=== PATIENT | male | born 1975 | race Caucasian/White ===

== ENCOUNTER 2017-11-07 18:38 | Emergency (ER) | payer BC ==
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
== END 2017-11-07 21:35 | disposition home or self-care (01) ==
LOC: JD.ED 18:38 → SUPCPDRO 18:38 → JD.ED 21:35
DX: S22.32XA Fracture of one rib, left side, initial encounter for closed fracture (principal); F17.210 Nicotine dependence, cigarettes, uncomplicated; Z88.0 Allergy status to penicillin; V86.92XA Unspecified occupant of snowmobile injured in nontraffic accident, initial encounter
CPT/HCPCS: 71250; 71250-26; 99284-25

== ENCOUNTER 2020-03-31 17:53 | Emergency (ER) | payer SELFPAY ==
[2020-03-31] MEDS ORDERED: Sodium Chloride 0.9% 10 ML Syringe FLUSH PRN (18:29)
--- NOTE | 2020-03-31 18:31 | EDM.PDOC ---
ED HPI GENERAL MEDICAL PROBLEM - General Chief Complaint: Drug or Alcohol Abuse Stated Complaint: LIVER PAIN Time Seen by Provider: 03/31/20 18:01 Source of Information: Reports: Patient, RN Notes Reviewed History Limitations: Reports: No Limitations - History of Present Illness INITIAL COMMENTS - FREE TEXT/NARRATIVE: Patient is a 44-year-old male who presents to the ED for the evaluation of his right upper quadrant pain. Patient notes he is a pretty heavy drinker, and he has been drinking pretty heavily on and off for the past 5 years. He states that he was up to 20 drinks of whiskey daily when he was at his heaviest use. He notes that his last period of sobriety was about 2 months the beginning of this year September 2019. Patient notes that he stopped drinking on Friday of this last week. He states Friday he felt pretty rotten, Friday got a little bit better, Friday he states his appetite returned and he was feeling almost 80% better, but over and today, he has been experiencing right upper quadrant pain, dizziness, and feels like his head is wobbling. He is not seeing anything that is not there. He has had alcoholic hepatitis 1 time in the past, and was concerned that this might be the case again today. Patient denies any other sick-like symptoms, fever/chills, cough/shortness of breath, nausea/vomiting/diarrhea. He states he is not been known to have any sort of alcohol withdrawal seizures. When I asked the patient what seemed to make him start drinking heavily, he states he did lose his son in 2014, and this is precipitated his alcohol use. He notes that he wants to get sober this time, as he has a fiance, and is interfering with the relationship, so he is quitting alcohol in an attempt to revive his relationship with his fiance. Right Upper Abdomen Pain Score (Numeric/FACES): 5 - Related Data Allergies Allergy/AdvReac Type Severity Reaction Status Date / Time Penicillins Allergy Vomiting Verified 03/31/20 18:05 Home Meds: Home Meds Cholecalciferol (Vitamin D3) [Vitamin D3] 1,000 units PO DAILY 03/31/20 [His tory] Multivitamin 1 tab PO DAILY 03/31/20 [History] Past Medical History HEENT History: Reports: Other (See Below) Other HEENT History: nasal surgery Musculoskeletal History: Reports: Other (See Below) Other Musculoskeletal History: meniscus removed right knee Psychiatric History: Reports: Addiction, Anxiety - Infectious Disease History Infectious Disease History: Reports: Hepatitis non A,B,C (alcoholic hepatitis) Social & Family History - Family History Family Medical History: Noncontributory - Tobacco Use Smoking Status *Q: Never Smoker Second Hand Smoke Exposure: No - Caffeine Use Caffeine Use: Reports: Coffee - Alcohol Use Alcohol Use History: Yes Days Per Week of Alcohol Use: 7 Number of Drinks Per Day: 20 (whiskey drinks) Total Drinks Per Week: 140 Date/Time of Last Drink Comment: States that his last drink was 03/26/2020 around 10AM Alcohol Use in Last Twelve Months: Yes Alcohol Use Frequency: Daily - Recreational Drug Use Recreational Drug Use: No - Living Situation & Occupation Occupation: Employed ED ROS GENERAL - Review of Systems Review Of Systems: Comprehensive ROS is negative, except as noted in HPI. ED EXAM, GENERAL - Physical Exam Exam: See Below Exam Limited By: No Limitations General Appearance: Alert, WD/WN, No Apparent Distress Eye Exam: Bilateral Eye: EOMI, Normal Inspection, PERRL Nose: Normal Inspection Throat/Mouth: Normal Inspection, Normal Lips, Normal Teeth, Normal Gums, Normal Oropharynx, Normal Voice, No Airway Compromise Head: Atraumatic, Normocephalic Neck: Normal Inspection Respiratory/Chest: No Respiratory Distress, Lungs Clear, Normal Breath Sounds, No Accessory Muscle Use, Chest Non-Tender Cardiovascular: Normal Peripheral Pulses, Regular Rate, Rhythm, No Murmur Peripheral Pulses: 3+: Radial (L), Radial (R) GI/Abdominal: Normal Bowel Sounds, Soft, No Distention, No Mass, Tender (slight tenderness to RUQ) Extremities: Normal Inspection, Normal Capillary Refill Neurological: Alert, Oriented, Normal Cognition, No Motor/Sensory Deficits Psychiatric: Normal Affect, Normal Mood Skin Exam: Warm, Dry, Intact, Normal Color, No Rash Course - Vital Signs Last Recorded V/S: Last Vital Signs Temp 98.5 F 03/31/20 18:02 Pulse 83 03/31/20 18:02 Resp 18 03/31/20 18:02 BP 157/99 H 03/31/20 18:02 Pulse Ox 99 03/31/20 18:02 - Orders/Labs/Meds Orders: Active Orders 24 hr Category Date Time Status Peripheral IV Care [RC] . DIRECTED Care 03/31/20 18:29 Active Sodium Chloride 0.9% [Saline Flush] Med 03/31/20 18:29 Active 10 ml FLUSH ASDIRECTED PRN Peripheral IV Insertion Adult [OM.PC] Stat Oth 03/31/20 18:29 Ordered Medication Orders Sodium Chloride (Saline Flush) 10 ml FLUSH ASDIRECTED PRN PRN Reason: Keep Vein Open Last Admin: 03/31/20 18:38 Dose: 10 ml Documented by: SUSAN Labs: Laboratory Tests 03/31/20 03/31/20 03/31/20 Range/Units 18:35 18:35 18:35 WBC 4.38 (4.23-9.07) K/mm3 RBC 4.00 L (4.63-6.08) M/mm3 Hgb 13.6 L (13.7-17.5) gm/dl Hct 40.9 (40.1-51.0) % MCV 102.3 H D (79.0-92.2) fl MCH 34.0 H (25.7-32.2) pg MCHC 33.3 (32.2-35.5) g/dl RDW Std Deviation 46.1 H (35.1-43.9) fL Plt Count 170 (163-337) K/mm3 MPV 10.1 (9.4-12.3) fl Neut % (Auto) 54.2 (34.0-67.9) % Lymph % (Auto) 25.6 (21.8-53.1) % Kerr % (Auto) 17.1 H (5.3-12.2) % Eos % (Auto) 1.8 (0.8-7.0) Baso % (Auto) 1.1 (0.1-1.2) % Neut # (Auto) 2.37 (1.78-5.38) K/mm3 Lymph # (Auto) 1.12 L (1.32-3.57) K/mm3 Kerr # (Auto) 0.75 (0.30-0.82) K/mm3 Eos # (Auto) 0.08 (0.04-0.54) K/mm3 Baso # (Auto) 0.05 (0.01-0.08) K/mm3 Manual Slide Review Abnormal smear PT 10.5 (9.7-12.0) SECONDS INR 0.96 APTT 27 (22-31) SECONDS Sodium 142 (136-145) mEq/L Potassium 3.6 (3.5-5.1) mEq/L Chloride 104 (98-107) mEq/L Carbon Dioxide 29 (21-32) mEq/L Anion Gap 12.6 (5-15) BUN 8 (7-18) mg/dL Creatinine 0.9 (0.7-1.3) mg/dL Est Cr Clr Drug Dosing 118.44 mL/min Estimated GFR (MDRD) > 60 (>60) mL/min BUN/Creatinine Ratio 8.9 L (14-18) Glucose 99 (74-106) mg/dL Calcium 8.7 (8.5-10.1) mg/dL Total Bilirubin 0.8 (0.2-1.0) mg/dL AST 51 H (15-37) U/L ALT 78 H (16-63) U/L Alkaline Phosphatase 82 (46-116) U/L Total Protein 7.0 (6.4-8.2) g/dl Albumin 3.5 (3.4-5.0) g/dl Globulin 3.5 gm/dL Albumin/Globulin Ratio 1.0 (1-2) Lipase 394 H (73-393) U/L Ethyl Alcohol 0.00 (0.00) gm% Meds: Medications Generic Name Dose Route Start Last Admin Trade Name Freq PRN Reason Stop Dose Admin Sodium Chloride 10 ml 03/31/20 18:29 03/31/20 18:38 Saline Flush FLUSH 10 ml ASDIRECTED PRN Administration Keep Vein Open - Re-Assessments/Exams Free Text/Narrative Re-Assessment/Exam: 03/31/20 18:37 Patient presents to the ED for evaluation of his right upper quadrant abdominal pain. Have ordered some basic labs, IV to be placed. Patient states he has been drinking lots of water, he very well could be hyponatremic causing some issues. Will await labs before we try to come up with a plan for this gentleman regarding his stopping drinking. 03/31/20 19:28 Patient CBC is returned, demonstrates no focal abnormalities. Metabolic panel shows a mildly elevated AST of 51, mildly elevated ALT of 78, lipase is 394, our cutoff for normal is 393, so essentially at the upper limits of normal but unremarkable, EtOH is is 0.00. Did order a PT/INR/PTT after initial labs, these are still pending at this time. 03/31/20 19:49 Coags are essentially normal, will discharge the patient home with general recommendations have him follow-up with his primary care provider as needed. Departure - Departure Time of Disposition: 19:49 Disposition: Home, Self-Care 01 Condition: Good Clinical Impression: RUQ abdominal pain Alcohol withdrawal without perceptual disturbances Qualifiers: Complication of substance-induced condition: uncomplicated Qualified Code(s): F10.230 - Alcohol dependence with withdrawal, uncomplicated - Discharge Information *PRESCRIPTION DRUG MONITORING PROGRAM REVIEWED*: No *COPY OF PRESCRIPTION DRUG MONITORING REPORT IN PATIENT KATIE: No Instructions: Alcohol Withdrawal Syndrome, [id number] Referrals: Theo Abbott Jr, MD [Primary Care Provider] - Additional Instructions: You were evaluated in the ER today regarding your upper abdominal pain. Laboratory evaluation was taken, and everything is unremarkable, you are not suffering from hepatitis. Liver enzymes are mildly elevated, but to be expected due to alcohol use. Your lipase was at the upper limits of normal, but again, this is not worrisome at this time. Keep up the good work, and try to refrain from alcohol use, you are pretty much over the worst portion of withdrawal type symptoms at this point. Recommend you try to increase your oral fluid intake as much as possible, try to drink fluids like Gatorade/Powerade as well. Try to get a few good meals daily, as this will also help possibly relieve some of the symptoms of the alcohol detox process. You may follow-up with your primary care provider as needed for further guidance. Not a bad idea to try to get involved with some sort of a AA group, or contact [facility] to see what they have to offer for guidance on alcohol addiction. Please return to the ER at any time if your symptoms should change or worsen. Sepsis Event Note (ED) - Evaluation Sepsis Screening Result: No Definite Risk - Focused Exam Vital Signs: Vital Signs Temp Pulse Resp BP Pulse Ox 03/31/20 18:02 98.5 F 83 18 157/99 H 99 - My Orders Last 24 Hours: My Active Orders 03/31/20 18:29 Peripheral IV Care [RC] . DIRECTED Sodium Chloride 0.9% [Saline Flush] 10 ml FLUSH ASDIRECTED PRN Peripheral IV Insertion Adult [OM.PC] Stat - Assessment/Plan Last 24 Hours: My Active Orders 03/31/20 18:29 Peripheral IV Care [RC] . DIRECTED Sodium Chloride 0.9% [Saline Flush] 10 ml FLUSH ASDIRECTED PRN Peripheral IV Insertion Adult [OM.PC] Stat
== END 2020-03-31 20:08 | disposition home or self-care (01) ==
LOC: JD.ED 17:53
DX: R10.11 Right upper quadrant pain (principal); F10.230 Alcohol dependence with withdrawal, uncomplicated; Z88.0 Allergy status to penicillin
CPT/HCPCS: 36415; 80053; 80307; 83690; 85025; 85610; 85730; 99283; 99284

== ENCOUNTER 2020-07-07 09:20 | Emergency (ER) | payer SELFPAY ==
[2020-07-07] MEDS ORDERED: Sodium Chloride 0.9% 10 ML Syringe FLUSH PRN (10:09)
[2020-07-07] MEDS ORDERED: LORazepam 2 MG/ML SDV IVPUSH ONE ×2 (10:09→11:48)
[2020-07-07] MEDS ORDERED: Sodium Chloride 0.9% 1,000 ML IV SCH ×2 (10:15→12:15)
[2020-07-07] MEDS ORDERED: Ondansetron 4 MG/2 ML SDV IVPUSH ONE (10:19)
[2020-07-07] MEDS ORDERED: Famotidine 20 MG/2 ML SDV IVPUSH ONE (10:19)
--- NOTE | 2020-07-07 10:24 | EDM.PDOCBH ---
ED HPI GENERAL MEDICAL PROBLEM - General Chief Complaint: Drug or Alcohol Abuse Stated Complaint: VOMITING Time Seen by Provider: 07/07/20 10:05 Source of Information: Reports: Patient, RN Notes Reviewed - History of Present Illness INITIAL COMMENTS - FREE TEXT/NARRATIVE: Has been drinking whiskey, binging the past 2 to 3 weeks. Has become ill with nause, vomiting, upper abd pain so did stop drinking about 3 days ago. Feels, weak, dizzy, lightheaded when standing and also has the "shakes" No hallucinations at this time. Had been off of alcohol for about 2 months prior to starting up again. Upper Abdomen Pain Score (Numeric/FACES): 10 - Related Data Allergies Allergy/AdvReac Type Severity Reaction Status Date / Time Penicillins AdvReac Severe Vomiting Verified 07/07/20 09:45 Home Meds: Home Meds Cholecalciferol (Vitamin D3) [Vitamin D3] 1,000 units PO DAILY 03/31/20 [History] Multivitamin 1 tab PO DAILY 03/31/20 [History] LORazepam [Ativan] 1 mg PO BID #7 tablet 07/07/20 [Rx] Ondansetron [Zofran ODT] 4 mg PO Q8HR PRN #6 tab.dis 07/07/20 [Rx] Past Medical History HEENT History: Reports: Other (See Below) Other HEENT History: nasal surgery Gastrointestinal History: Reports: Other (See Below) Other Gastrointestinal History: "Liver Issues" Musculoskeletal History: Reports: Other (See Below) Other Musculoskeletal History: meniscus removed right knee Psychiatric History: Reports: Addiction, Anxiety - Infectious Disease History Infectious Disease History: Reports: Other (See Below) Other Infectious Disease History: Possible Hepatitis? - Past Surgical History HEENT Surgical History: Reports: Naso-Sinus Surgery Social & Family History - Family History Family Medical History: Noncontributory - Tobacco Use Tobacco Use Status *Q: Never Tobacco User - Caffeine Use Caffeine Use: Reports: None - Recreational Drug Use Recreational Drug Use: No - Living Situation & Occupation Occupation: Employed ED ROS GENERAL - Review of Systems Review Of Systems: See Below Constitutional: Denies: Fever, Chills, Diaphoresis HEENT: Reports: No Symptoms Respiratory: Denies: Shortness of Breath, Cough Cardiovascular: Denies: Chest Pain GI/Abdominal: Reports: Nausea, Vomiting. Denies: Abdominal Pain, Diarrhea, Hematochezia, Melena Musculoskeletal: Reports: No Symptoms Skin: Reports: No Symptoms Neurological: Reports: Tremors, Other Psychiatric: Reports: Anxiety ED EXAM, BEHAVIORAL HEALTH - Physical Exam Exam: See Below General Appearance: Alert, Anxious, Mild Distress Eye Exam: Bilateral Eye: PERRL Head: Atraumatic Neck: Supple Respiratory/Chest: No Respiratory Distress, Lungs Clear, Normal Breath Sounds Cardiovascular: Tachycardia GI/Abdominal: Soft, Non-Tender Extremities: Normal Inspection, Normal Range of Motion Neurological: Tremor Skin Exam: Warm, Dry, Normal color COURSE, BEHAVIORAL HEALTH COMP - Course Vital Signs: Last Vital Signs Temp 97.1 F 07/07/20 09:42 Pulse 98 07/07/20 09:42 Resp 18 07/07/20 09:42 BP 164/101 H 07/07/20 09:42 Pulse Ox 97 07/07/20 09:42 Orders, Labs, Meds: Active Orders 24 hr Category Date Time Status Peripheral IV Care [RC] . DIRECTED Care 07/07/20 10:10 Active Sodium Chloride 0.9% [Normal Saline] 1,000 ml Med 07/07/20 10:15 Active IV ONETIME Sodium Chloride 0.9% [Normal Saline] 1,000 ml Med 07/07/20 12:15 Active IV ONETIME Sodium Chloride 0.9% [Saline Flush] Med 07/07/20 10:09 Active 10 ml FLUSH ASDIRECTED PRN Peripheral IV Insertion Adult [OM.PC] Stat Oth 07/07/20 10:09 Ordered Medication Orders Sodium Chloride (Normal Saline) 1,000 mls @ 999 mls/hr IV ONETIME MARILY Last Admin: 07/07/20 10:39 Dose: 999 mls/hr Documented by: SUSAN Sodium Chloride (Normal Saline) 1,000 mls @ 999 mls/hr IV ONETIME MARILY Sodium Chloride (Saline Flush) 10 ml FLUSH ASDIRECTED PRN PRN Reason: Keep Vein Open Last Admin: 07/07/20 10:41 Dose: 10 ml Documented by: SUSAN Laboratory Tests 07/07/20 07/07/20 Range/Units 09:53 09:53 WBC 8.39 (4.23-9.07) K/mm3 RBC 5.06 (4.63-6.08) M/mm3 Hgb 16.4 D (13.7-17.5) gm/dl Hct 47.8 (40.1-51.0) % MCV 94.5 H D (79.0-92.2) fl MCH 32.4 H (25.7-32.2) pg MCHC 34.3 (32.2-35.5) g/dl RDW Std Deviation 42.9 (35.1-43.9) fL Plt Count 243 (163-337) K/mm3 MPV 10.5 (9.4-12.3) fl Neut % (Auto) 79.2 H (34.0-67.9) % Lymph % (Auto) 10.8 L (21.8-53.1) % [place] % (Auto) 8.9 (5.3-12.2) % Eos % (Auto) 0.4 L (0.8-7.0) Baso % (Auto) 0.6 (0.1-1.2) % Neut # (Auto) 6.64 H (1.78-5.38) K/mm3 Lymph # (Auto) 0.91 L (1.32-3.57) K/mm3 [place] # (Auto) 0.75 (0.30-0.82) K/mm3 Eos # (Auto) 0.03 L (0.04-0.54) K/mm3 Baso # (Auto) 0.05 (0.01-0.08) K/mm3 Sodium 137 (136-145) mEq/L Potassium 4.0 (3.5-5.1) mEq/L Chloride 97 L (98-107) mEq/L Carbon Dioxide 28 (21-32) mEq/L Anion Gap 16.0 H (5-15) BUN 12 (7-18) mg/dL Creatinine 1.0 (0.7-1.3) mg/dL Est Cr Clr Drug Dosing 106.59 mL/min Estimated GFR (MDRD) > 60 (>60) mL/min BUN/Creatinine Ratio 12.0 L (14-18) Glucose 122 H (74-106) mg/dL Calcium 9.4 (8.5-10.1) mg/dL Total Bilirubin 1.8 H (0.2-1.0) mg/dL AST 70 H (15-37) U/L ALT 73 H (16-63) U/L Alkaline Phosphatase 100 (46-116) U/L Total Protein 8.1 (6.4-8.2) g/dl Albumin 4.3 (3.4-5.0) g/dl Globulin 3.8 gm/dL Albumin/Globulin Ratio 1.1 (1-2) Lipase 85 (73-393) U/L Ethyl Alcohol 0.00 (0.00) gm% Medications Generic Name Dose Route Start Last Admin Trade Name Freq PRN Reason Stop Dose Admin Sodium Chloride 1,000 mls @ 999 mls/hr 07/07/20 10:15 07/07/20 10:39 Normal Saline IV 999 mls/hr ONETIME MARILY Administration Sodium Chloride 1,000 mls @ 999 mls/hr 07/07/20 12:15 Normal Saline IV ONETIME MARILY Sodium Chloride 10 ml 07/07/20 10:09 07/07/20 10:41 Saline Flush FLUSH 10 ml ASDIRECTED PRN Administration Keep Vein Open Discontinued Medications Generic Name Dose Route Start Last Admin Trade Name Freq PRN Reason Stop Dose Admin Famotidine 20 mg 07/07/20 10:19 07/07/20 10:41 Pepcid IVPUSH 07/07/20 10:20 20 mg ONETIME ONE Administration Sodium Chloride 1,000 mls @ 999 mls/hr 07/07/20 11:59 07/07/20 12:06 Normal Saline IV 07/07/20 12:59 999 mls/hr ONETIME ONE Administration Lorazepam 1 mg 07/07/20 10:09 07/07/20 10:40 Ativan IVPUSH 07/07/20 10:10 1 mg ONETIME ONE Administration Lorazepam 1 mg 07/07/20 11:48 07/07/20 11:58 Ativan IVPUSH 07/07/20 11:49 1 mg ONETIME ONE Administration Ondansetron HCl 4 mg 07/07/20 10:19 07/07/20 10:39 Zofran IVPUSH 07/07/20 10:20 4 mg ONETIME ONE Administration Re-Assessment/Re-Exam: Feeling better at time of discharge, treated with IV fluid, IV zofran, ativan 1 mg times 2. Discharge instr. as documented. Departure - Departure Time of Disposition: 13:11 Disposition: Home, Self-Care 01 Condition: Fair Clinical Impression: Vomiting Alcohol withdrawal Qualifiers: Complication of substance-induced condition: uncomplicated Qualified Code(s): F10.230 - Alcohol dependence with withdrawal, uncomplicated - Discharge Information Prescriptions: LORazepam [Ativan] 1 mg PO BID #7 tablet Ondansetron [Zofran ODT] 4 mg PO Q8HR PRN #6 tab.dis PRN Reason: Nausea/Vomiting Instructions: Alcohol Withdrawal Syndrome, [id number] Referrals: PCP,None [Primary Care Provider] - Forms: ED Department Discharge Additional Instructions: Rest. Avoid further alcohol. Clear liquids and bland diet as tolerated. Zofran if needed for further nausea or vomiting. Ativan 1 mg twice daily for 3 days to help for withdrawal symptoms. Go to [facility] 8:30 AM any morning Friday to Friday for open enrollment. They have counselors and programs that can help you. Return to ED as needed. Sepsis Event Note (ED) - Evaluation Sepsis Screening Result: No Definite Risk - Focused Exam Vital Signs: Vital Signs Temp Pulse Resp BP Pulse Ox 07/07/20 09:42 97.1 F 98 18 164/101 H 97 - My Orders Last 24 Hours: My Active Orders 07/07/20 10:09 Sodium Chloride 0.9% [Saline Flush] 10 ml FLUSH ASDIRECTED PRN Peripheral IV Insertion Adult [OM.PC] Stat 07/07/20 10:10 Peripheral IV Care [RC] . DIRECTED 07/07/20 10:15 Sodium Chloride 0.9% [Normal Saline] 1,000 ml IV ONETIME 07/07/20 12:15 Sodium Chloride 0.9% [Normal Saline] 1,000 ml IV ONETIME - Assessment/Plan Last 24 Hours: My Active Orders 07/07/20 10:09 Sodium Chloride 0.9% [Saline Flush] 10 ml FLUSH ASDIRECTED PRN Peripheral IV Insertion Adult [OM.PC] Stat 07/07/20 10:10 Peripheral IV Care [RC] . DIRECTED 07/07/20 10:15 Sodium Chloride 0.9% [Normal Saline] 1,000 ml IV ONETIME 07/07/20 12:15 Sodium Chloride 0.9% [Normal Saline] 1,000 ml IV ONETIME
[2020-07-07] MEDS ORDERED: Sodium Chloride 0.9% 1,000 ML IV ONE (11:59)
== END 2020-07-07 13:53 | disposition home or self-care (01) ==
LOC: JD.ED 09:20
DX: F10.230 Alcohol dependence with withdrawal, uncomplicated (principal); R10.10 Upper abdominal pain, unspecified; F41.9 Anxiety disorder, unspecified; Z88.0 Allergy status to penicillin; Z79.899 Other long term (current) drug therapy
CPT/HCPCS: 36415; 80053; 80307; 83690; 85025; 96374; 96375; 96376; 99284; J2060; J2405; J3490; J7030

== ENCOUNTER 2022-07-05 12:33 | Emergency (ER) | payer SELFPAY ==
[2022-07-05] MEDS ORDERED: Sodium Chloride 0.9% 10 ML Syringe FLUSH PRN (13:39)
[2022-07-05] MEDS ORDERED: LORazepam 2 MG/ML SDV IVPUSH ONE ×2 (13:40→15:56)
[2022-07-05] MEDS ORDERED: Sodium Chloride 0.9% 1,000 ML IV ONE ×2 (13:40→15:27)
== END 2022-07-05 17:16 | disposition home or self-care (01) ==
LOC: JD.ED 12:33
DX: R56.9 Unspecified convulsions (principal); F10.939 Alcohol use, unspecified with withdrawal, unspecified; Z88.0 Allergy status to penicillin; Z79.899 Other long term (current) drug therapy; W01.10XA Fall on same level from slipping, tripping and stumbling with subsequent striking against unspecified object, initial encounter
CPT/HCPCS: 36415; 70450; 80053; 80143; 80179; 80306; 80307; 81001; 83605; 83735; 84443; 85025; 93005; 96361; 96374; 96376; 99285; J2060; J3490; J7030; 93010; 99284

== ENCOUNTER 2023-04-06 12:37 | Emergency (ER) | payer OTHER ==
[2023-04-06] MEDS ORDERED: Sodium Chloride 0.9% 10 ML Syringe FLUSH PRN (13:14)
[2023-04-06] MEDS ORDERED: Ondansetron 4 MG/2 ML SDV IVPUSH ONE (13:14)
[2023-04-06] MEDS ORDERED: LORazepam 2 MG/ML SDV IVPUSH ONE ×2 (13:15→15:38)
[2023-04-06] MEDS ORDERED: Sodium Chloride 0.9% 1,000 ML IV SCH (13:15)
[2023-04-06] MEDS ORDERED: HYDROmorphone 0.5 MG/0.5 ML Syringe IVPUSH ONE (13:41)
[2023-04-06 13:47] LABS: BASOPHILS ABSOLUTE AUTO 0.01 K/mm3 (0.01-0.08); BASOPHILS PERCENT AUTO 0.1 % (0.1-1.2); EOSINOPHILS PERCENT AUTO 0 (0.8-7.0); HEMATOCRIT 45.6 % (40.1-51.0); HEMOGLOBIN 15.8 gm/dl (13.7-17.5); IMMATURE GRAN ABSOLUTE AUTO 0.02 K/mm3 (0.00-0.10); IMMATURE GRAN PERCENT AUTO 0.2 % (<=1.0); LYMPHOCYTES ABSOLUTE AUTO 0.83 K/mm3 (1.32-3.57); LYMPHOCYTES PERCENT AUTO 7.4 % (21.8-53.1); MEAN CORPUSCULAR HEMOGLOBIN 32.4 pg (25.7-32.2); MEAN CORPUSCULAR HGB CONC 34.6 g/dl (32.2-35.5); MEAN CORPUSCULAR VOLUME 93.4 fl (79.0-92.2); MEAN PLATELET VOLUME 10.9 fl (9.4-12.3); MONOCYTES ABSOLUTE AUTO 0.98 K/mm3 (0.30-0.82); MONOCYTES PERCENT AUTO 8.8 % (5.3-12.2); NEUTROPHILS ABSOLUTE AUTO 9.36 K/mm3 (1.78-5.38); NEUTROPHILS PERCENT AUTO 83.5 % (34.0-67.9); PLATELET COUNT,PLT 92 K/mm3 (163-337); RED BLOOD CELL COUNT 4.88 M/mm3 (4.63-6.08)
[2023-04-06 14:29] LABS: ALBUMIN 4.1 g/dl (3.4-5.0); ANION GAP 14.6 (5-15); BILIRUBIN TOTAL 2.2 mg/dL (0.2-1.0); BUN/CREATININE RATIO 31.3 (14-18); CALCIUM 9.7 mg/dL (8.5-10.1); CREATININE 0.8 mg/dL (0.7-1.3); EST CRCL DRUG DOSING (CG) 133.5 mL/min; MAGNESIUM 1.4 mg/dL (1.8-2.4); POTASSIUM,K 2.6 mEq/L (3.5-5.1); PROTEIN TOTAL,TP 8.3 g/dl (6.4-8.2)
[2023-04-06 14:35] LABS: SLIDE REVIEW ABNORMAL SMEAR
[2023-04-06] MEDS ORDERED: Magnesium Sulfate/Water 2 GM in Premix Bag 1 BAG IV ONE (14:47)
[2023-04-06] MEDS ORDERED: Sodium Chloride 0.9% 1,000 ML IV ONE (14:48)
[2023-04-06] MEDS: Potassium Chloride 10 MEQ in Premix Bag 1 BAG IV SCH ×3 (15:37→18:13)
[2023-04-06] MEDS ORDERED: Metoclopramide 10 MG/2 ML SDV IVPUSH ONE (15:38)
[2023-04-06] MEDS ORDERED: cloNIDine 0.1 MG Tab PO ONE (16:07)
== END 2023-04-06 18:10 | disposition home or self-care (01) ==
LOC: JD.ED 12:37
DX: F10.930 Alcohol use, unspecified with withdrawal, uncomplicated (principal); R11.2 Nausea with vomiting, unspecified; E87.6 Hypokalemia; Z88.0 Allergy status to penicillin; Y90.0 Blood alcohol level of less than 20 mg/100 ml
CPT/HCPCS: 36415; 80053; 80143; 80179; 80307; 83735; 85025; 96361; 96365; 96366; 96368; 96375; 96376; 99284; A9270; J1170; J2060; J2405; J2765; J3475; J3480; J3490; J7030

== ENCOUNTER 2023-06-30 16:59 | Inpatient (IN) | payer OTHER ==
[2023-06-30] MEDS ORDERED: LORazepam 2 MG/ML SDV IVPUSH ONE ×3 (17:14→20:55)
[2023-06-30] MEDS ORDERED: Metoclopramide 10 MG/2 ML SDV IVPUSH ONE (17:15)
[2023-06-30] MEDS ORDERED: Sodium Chloride 0.9% 1,000 ML IV ONE (17:16)
[2023-06-30 17:30] LABS: BASOPHILS ABSOLUTE AUTO 0.1 K/mm3 (0.0-0.2); EOSINOPHILS ABSOLUTE AUTO 0.1 K/mm3 (0.0-0.4); HEMATOCRIT 51.1 % (42.0-52.0); HEMOGLOBIN 18.8 gm/dl (14.0-18.0); IMMATURE GRAN ABSOLUTE AUTO 0.01 K/mm3 (0.00-0.05); IMMATURE GRAN PERCENT AUTO 0.2 % (0.0-0.4); LYMPHOCYTES ABSOLUTE AUTO 1.5 K/mm3 (1.0-4.8); LYMPHOCYTES PERCENT AUTO 31.6 % (24.0-44.0); MEAN CORPUSCULAR HEMOGLOBIN 33.2 pg (28.0-32.0); MEAN CORPUSCULAR HGB CONC 36.8 g/dl (32.0-36.0); MEAN CORPUSCULAR VOLUME 90.1 fl (83.0-99.0); MONOCYTES ABSOLUTE AUTO 0.5 K/mm3 (0.0-0.8); MONOCYTES PERCENT AUTO 9.6 % (0.0-8.0); NEUTROPHILS ABSOLUTE AUTO 2.7 K/mm3 (1.8-7.7); NEUTROPHILS PERCENT AUTO 56.6 % (41.0-71.0); PLATELET COUNT,PLT 155 K/mm3 (150-400); RED BLOOD CELL COUNT 5.67 M/mm3 (4.52-5.90); WHITE BLOOD CELL COUNT,WBC 4.81 K/mm3 (3.9-11.3)
[2023-06-30 17:49] LABS: A/G RATIO 1.1 (1-2); ALBUMIN 4.4 g/dl (3.4-5.0); ANION GAP 20.4 (5-15); BILIRUBIN TOTAL 0.9 mg/dL (0.2-1.0); CALCIUM 8.9 mg/dL (8.5-10.1); EST CRCL DRUG DOSING (CG) 103.89 mL/min; MAGNESIUM 1.8 mg/dL (1.8-2.4); POTASSIUM,K 3.4 mEq/L (3.5-5.1); PROTEIN TOTAL,TP 8.6 g/dl (6.4-8.2)
[2023-06-30] MEDS ORDERED: NS with KCl 40mEq 1,000 ML IV SCH (18:45)
[2023-06-30] MEDS ORDERED: Pantoprazole 40 MG Vial IVPUSH ONE (18:46)
[2023-06-30 20:09] LABS: APPEARANCE,URINE CLEAR (Clear); BILIRUBIN,URINE NEGATIVE (Negative); COLOR,URINE YELLOW (Yellow); GLUCOSE,URINE NEGATIVE (Negative); KETONES,URINE 1+ (Negative); LEUKOCYTE ESTERASE,URINE NEGATIVE (Negative); NITRITE,URINE NEGATIVE (Negative); OCCULT BLOOD,URINE TRACE-LYSED (Negative); PH,URINE 6.5 (5.0-8.0); PROTEIN,URINE 2+ (Negative)
[2023-06-30 20:16] LABS: BARBITURATE SCREEN,URINE NEGATIVE (CUTOFF=200); BENZODIAZEPINES SCREEN,URINE PRESUMPTIVE POSITIVE (CUTOFF=150); BUPRENORPHINE SCREEN,URINE NEGATIVE (CUTOFF=10); METHADONE SCREEN, URINE NEGATIVE (CUT0FF=200); METHAMPHETAMINES SCREEN, URINE NEGATIVE (CUTOFF=500); OXYCODONE SCREEN,URINE NEGATIVE (CUT0FF=100); PROPOXYPHENE SCREEN,URINE NEGATIVE (CUTOFF=300); THC SCREEN,URINE 20 NG/ML NEGATIVE (CUTOFF=50)
[2023-06-30 20:18] LABS: BACTERIA,URINE FEW /hpf (FEW); MUCUS,URINE MANY /hpf (FEW); RBC,URINE 0-5 /hpf (0-5); SQUAMOUS EPITHELIAL CELLS,UR 0-5 /hpf (0-5); WBC,URINE 0-5 /hpf (0-5)
[2023-06-30 20:19] LABS: AMPHETAMINES SCREEN, URINE NEGATIVE (CUTOFF=500)
[2023-06-30] MEDS ORDERED: Promethazine 12.5 MG in Sodium Chloride 0.9% 50 ML IV ONE (20:47)
[2023-06-30] MEDS ORDERED: HYDROmorphone 0.5 MG/0.5 ML Syringe IVPUSH ONE (21:00)
[2023-06-30] MEDS ORDERED: Naloxone 0.4 MG/ML SDV IVPUSH PRN (21:00)
[2023-07-01] MEDS: LORazepam 2 MG/ML SDV IVPUSH PRN ×8 (00:04→23:40)
[2023-07-01] MEDS: Ondansetron 4 MG/2 ML SDV IVPUSH PRN ×3 (02:50→16:53)
[2023-07-01 06:34] LABS: HEMATOCRIT 39.9 % (42.0-52.0); MEAN CORPUSCULAR HEMOGLOBIN 32.5 pg (28.0-32.0); MEAN CORPUSCULAR HGB CONC 34.6 g/dl (32.0-36.0); MEAN CORPUSCULAR VOLUME 93.9 fl (83.0-99.0); MEAN PLATELET VOLUME 10.9 fl (9.4-12.4); PLATELET COUNT,PLT 94 K/mm3 (150-400); RED BLOOD CELL COUNT 4.25 M/mm3 (4.52-5.90); WHITE BLOOD CELL COUNT,WBC 5.78 K/mm3 (3.9-11.3)
[2023-07-01 06:49] LABS: HEMOGLOBIN 13.8 gm/dl (14.0-18.0)
[2023-07-01 07:07] LABS: A/G RATIO 1.1 (1-2); ALBUMIN 3.3 g/dl (3.4-5.0); ANION GAP 15.2 (5-15); BILIRUBIN TOTAL 1.6 mg/dL (0.2-1.0); CALCIUM 8.2 mg/dL (8.5-10.1); CREATININE 0.8 mg/dL (0.7-1.3); EST CRCL DRUG DOSING (CG) 129.86 mL/min; POTASSIUM,K 3.2 mEq/L (3.5-5.1); PROTEIN TOTAL,TP 6.4 g/dl (6.4-8.2)
[2023-07-01] MEDS: Folic Acid 1 MG Tab PO SCH (09:23)
[2023-07-01] MEDS: Nicotine 14 MG/24 Hr Patch TRDERM SCH (09:23)
[2023-07-01] MEDS: Thiamine 100 MG Tab PO SCH (09:23)
[2023-07-01] MEDS: HYDROmorphone 0.5 MG/0.5 ML Syringe IVPUSH PRN (13:03)
[2023-07-01] MEDS: Famotidine 20 MG Tab PO SCH (19:59)
[2023-07-02 05:26] LABS: ALBUMIN 3.4 g/dl (3.4-5.0); ANION GAP 13.3 (5-15); BILIRUBIN TOTAL 1.7 mg/dL (0.2-1.0); BUN/CREATININE RATIO 8.8 (14-18); CALCIUM 8.8 mg/dL (8.5-10.1); CREATININE 0.8 mg/dL (0.7-1.3); EST CRCL DRUG DOSING (CG) 129.86 mL/min; MAGNESIUM 1.6 mg/dL (1.8-2.4); POTASSIUM,K 3.3 mEq/L (3.5-5.1); PROTEIN TOTAL,TP 6.8 g/dl (6.4-8.2)
[2023-07-02 05:29] LABS: BASOPHILS PERCENT AUTO 0.7 % (0.0-1.0); EOSINOPHILS ABSOLUTE AUTO 0.2 K/mm3 (0.0-0.4); EOSINOPHILS PERCENT AUTO 2.7 % (0.0-6.0); HEMATOCRIT 40.5 % (42.0-52.0); HEMOGLOBIN 14.3 gm/dl (14.0-18.0); IMMATURE GRAN ABSOLUTE AUTO 0.02 K/mm3 (0.00-0.05); IMMATURE GRAN PERCENT AUTO 0.3 % (0.0-0.4); LYMPHOCYTES ABSOLUTE AUTO 0.9 K/mm3 (1.0-4.8); LYMPHOCYTES PERCENT AUTO 14.9 % (24.0-44.0); MEAN CORPUSCULAR HEMOGLOBIN 32.4 pg (28.0-32.0); MEAN CORPUSCULAR HGB CONC 35.3 g/dl (32.0-36.0); MEAN CORPUSCULAR VOLUME 91.8 fl (83.0-99.0); MEAN PLATELET VOLUME 10.7 fl (9.4-12.4); MONOCYTES ABSOLUTE AUTO 0.7 K/mm3 (0.0-0.8); MONOCYTES PERCENT AUTO 12.5 % (0.0-8.0); NEUTROPHILS ABSOLUTE AUTO 4.1 K/mm3 (1.8-7.7); NEUTROPHILS PERCENT AUTO 68.9 % (41.0-71.0); PLATELET COUNT,PLT 90 K/mm3 (150-400); RED BLOOD CELL COUNT 4.41 M/mm3 (4.52-5.90)
[2023-07-02 06:26] LABS: SLIDE REVIEW ABNORMAL SMEAR
[2023-07-02] MEDS: Famotidine 20 MG Tab PO SCH ×2 (08:45→20:21)
[2023-07-02] MEDS: Thiamine 100 MG Tab PO SCH (08:46)
[2023-07-02] MEDS: Ondansetron 4 MG/2 ML SDV IVPUSH PRN ×3 (08:46→17:52)
[2023-07-02] MEDS: Nicotine 14 MG/24 Hr Patch TRDERM SCH (08:46)
[2023-07-02] MEDS: Folic Acid 1 MG Tab PO SCH (08:46)
[2023-07-02] MEDS: fluvoxaMINE 50 MG Tab PO SCH ×2 (13:47→20:21)
[2023-07-02] MEDS ORDERED: Docusate Sodium 100 MG Cap PO PRN (14:06)
[2023-07-02] MEDS: HYDROmorphone 0.5 MG/0.5 ML Syringe IVPUSH PRN (18:23)
[2023-07-02] MEDS: Topiramate 25 MG Tab PO SCH (20:21)
[2023-07-02] MEDS: LORazepam 2 MG/ML SDV IVPUSH PRN (21:58)
[2023-07-03 05:31] LABS: BASOPHILS PERCENT AUTO 0.6 % (0.0-1.0); EOSINOPHILS ABSOLUTE AUTO 0.3 K/mm3 (0.0-0.4); EOSINOPHILS PERCENT AUTO 3.6 % (0.0-6.0); HEMATOCRIT 41.1 % (42.0-52.0); HEMOGLOBIN 14.5 gm/dl (14.0-18.0); IMMATURE GRAN ABSOLUTE AUTO 0.04 K/mm3 (0.00-0.05); IMMATURE GRAN PERCENT AUTO 0.6 % (0.0-0.4); LYMPHOCYTES ABSOLUTE AUTO 1.3 K/mm3 (1.0-4.8); LYMPHOCYTES PERCENT AUTO 18.2 % (24.0-44.0); MEAN CORPUSCULAR HGB CONC 35.3 g/dl (32.0-36.0); MEAN CORPUSCULAR VOLUME 93.6 fl (83.0-99.0); MEAN PLATELET VOLUME 10.7 fl (9.4-12.4); MONOCYTES PERCENT AUTO 13.6 % (0.0-8.0); NEUTROPHILS ABSOLUTE AUTO 4.4 K/mm3 (1.8-7.7); NEUTROPHILS PERCENT AUTO 63.4 % (41.0-71.0); PLATELET COUNT,PLT 103 K/mm3 (150-400); RED BLOOD CELL COUNT 4.39 M/mm3 (4.52-5.90); WHITE BLOOD CELL COUNT,WBC 6.99 K/mm3 (3.9-11.3)
[2023-07-03 06:09] LABS: ANION GAP 15.1 (5-15); CALCIUM 9.1 mg/dL (8.5-10.1); CREATININE 0.8 mg/dL (0.7-1.3); EST CRCL DRUG DOSING (CG) 129.86 mL/min; POTASSIUM,K 3.1 mEq/L (3.5-5.1)
[2023-07-03] MEDS: Ondansetron 4 MG/2 ML SDV IVPUSH PRN (07:43)
[2023-07-03] MEDS: Folic Acid 1 MG Tab PO SCH (09:03)
[2023-07-03] MEDS: Thiamine 100 MG Tab PO SCH (09:03)
[2023-07-03] MEDS: Famotidine 20 MG Tab PO SCH (09:03)
[2023-07-03] MEDS: Topiramate 25 MG Tab PO SCH (09:04)
[2023-07-03] MEDS: Nicotine 14 MG/24 Hr Patch TRDERM SCH (09:04)
[2023-07-03] MEDS: HYDROmorphone 0.5 MG/0.5 ML Syringe IVPUSH PRN (09:15)
== END 2023-07-03 10:55 | disposition home or self-care (01) | DRG 897 ==
LOC: JD.ED 16:59 → UNDOADMIN 21:24 → JD.MS 21:24
PROVIDERS: ADMIT Internal Medicine; ATTEND Internal Medicine
DX: F10.239 Alcohol dependence with withdrawal, unspecified (principal); F32.2 Major depressive disorder, single episode, severe without psychotic features; E87.6 Hypokalemia; F41.1 Generalized anxiety disorder; K70.10 Alcoholic hepatitis without ascites; D69.59 Other secondary thrombocytopenia; G40.909 Epilepsy, unspecified, not intractable, without status epilepticus; G89.29 Other chronic pain; M54.9 Dorsalgia, unspecified; F17.210 Nicotine dependence, cigarettes, uncomplicated; Z98.890 Other specified postprocedural states; Z79.899 Other long term (current) drug therapy; Z88.0 Allergy status to penicillin
CPT/HCPCS: 36415; 80048; 80053; 80306; 81001; 83735; 85025; 85027; 93005; 93010; 96361; 96365; 96366; 96375; 96376; 99284; 99285-25; A9270-GY; C9113; J1170; J2060; J2405; J2550; J2765; J3480; J3490; J7030; Q3014

== ENCOUNTER 2025-08-03 08:16 | Day surgery (SDC) | payer OTHER ==
[~2025-08-03 08:16] MED LIST: Sodium Chloride 0.9% 10 ML Syringe FLUSH PRN; Sodium Chloride 0.9% 10 ML Syringe FLUSH SCH
[2025-08-03] MEDS: Lactated Ringers 1,000 ML IV SCH (08:35)
[2025-08-03] MEDS: Clindamycin Phosphate in D5W 900 MG in Premix Bag 1 BAG IV ONE (08:43)
[2025-08-03] MEDS ORDERED: propofoL 500 MG/50 ML 50 ML ONE (09:44)
[2025-08-03] MEDS ORDERED: Propofol 200 MG/20 ML SDV ONE (09:54)
[2025-08-03] MEDS ORDERED: Ondansetron 4 MG/2 ML SDV ONE (09:55)
[2025-08-03] MEDS ORDERED: Ketorolac 30 MG/ML SDV ONE (09:55)
[2025-08-03] MEDS ORDERED: Dexamethasone 4 MG/ML 5 ML MDV ONE (09:55)
[2025-08-03] MEDS ORDERED: dexmedeTOMIDine HCl 200 MCG/2 ML SDV ONE (09:55)
[2025-08-03] MEDS ORDERED: fentaNYL 250 MCG/5 ML SDV ONE (09:58)
[2025-08-03] MEDS: EPINEPHrine 1 MG/ML SDV ONE (10:45)
[2025-08-03] MEDS ORDERED: Lactated Ringers 1,000 ML ONE (10:48)
[2025-08-03] MEDS ORDERED: fentaNYL 100 MCG/2 ML SDV IVPUSH PRN (11:21)
[2025-08-03] MEDS ORDERED: Ondansetron 4 MG/2 ML SDV IVPUSH PRN (11:21)
== END 2025-08-03 12:33 | disposition home or self-care (01) ==
LOC: JD.SDS 08:16
PROVIDERS: ATTEND Orthopaedic Surgery
DX: S83.242A Other tear of medial meniscus, current injury, left knee, initial encounter (principal); M22.42 Chondromalacia patellae, left knee; X58.XXXA Exposure to other specified factors, initial encounter
CPT/HCPCS: 29881; J0169; J0665; J0736; J1100; J1885; J2405; J2704; J3010; J7120; J1171